=== PATIENT | female | born 1955 | race Asian ===

== ENCOUNTER 2021-12-04 08:09 | Day surgery (SDC) | payer OTHER ==
[2021-11-29 17:36] VITALS: BMI 26.0
[~2021-12-04 08:09] MED LIST: BUPIVACAINE HCL/PF 0.5% (5MG/ML) 10 ML VIAL IJ ONE; CEFAZOLIN 2 GM in DEXTROSE 5%-WATER - 100 ML IVPB ONE
[2021-12-04] MEDS ORDERED: ceFAZolin SODIUM 1 GM VIAL ONE (09:08)
[2021-12-04] MEDS ORDERED: BUPIVACAINE LIPOSOME/PF (EXPAREL) 266 MG/20 ML VIAL ONE (10:57)
[2021-12-04] MEDS ORDERED: BUPIVACAINE HCL/PF 0.5% (5MG/ML) 10 ML VIAL ONE ×2 (10:57→11:55)
[2021-12-04] MEDS ORDERED: MIDAZOLAM HCL 2 MG/2 ML SINGLE DOSE VIAL ONE ×3 (10:58→11:29)
[2021-12-04] MEDS ORDERED: CEFAZOLIN 2 GM in DEXTROSE 5%-WATER - 100 ML IVPB ONE (11:00)
[2021-12-04] MEDS ORDERED: fentaNYL CITRATE 250 MCG/5 ML VIAL ONE (11:28)
[2021-12-04] MEDS ORDERED: ACETAMINOPHEN INJECTION 100 ML IVPB ONE ×2 (12:36→16:48)
[2021-12-04] MEDS ORDERED: ceFAZolin SODIUM 1 GM VIAL IVPB ONE (12:38)
[2021-12-04] MEDS ORDERED: BUPIVACAINE HCL/PF 0.5% (5MG/ML) 10 ML VIAL IJ ONE ×2 (12:52)
[2021-12-04] MEDS ORDERED: KETOROLAC TROMETHAMINE 30 MG/1 ML VIAL ONE (13:31)
[2021-12-04] MEDS ORDERED: LIDOCAINE HCL/PF 2% SDV 5ML VIAL ONE (13:31)
[2021-12-04] MEDS ORDERED: PROPOFOL 20 ML ONE ×2 (13:34)
[2021-12-04] MEDS ORDERED: SUCCINYLCHOLINE CHLORIDE 200 MG/10 ML SYRINGE ONE (13:34)
[2021-12-04] MEDS ORDERED: ACETAMINOPHEN 325 MG TABLET (FP) PO PRN (16:30)
[2021-12-04] MEDS ORDERED: oxyCODONE HCL 5 MG TABLET PO PRN (16:30)
[2021-12-04] MEDS: ACETAMINOPHEN 1000 MG/100 ML BAG IVPB SCH ×2 (16:50→22:02)
[2021-12-04] MEDS ORDERED: ONDANSETRON 4 MG/2 ML VIAL IVPUSH PRN (17:24)
[2021-12-04] MEDS: LACTATED RINGERS SOLUTION 1,000 ML IV SCH (18:42)
[2021-12-04] MEDS: CEFAZOLIN 2 GM in DEXTROSE 5%-WATER - 100 ML IVPB SCH (19:59)
[2021-12-04] MEDS ORDERED: ROSUVASTATIN CA 5 MG TABLET PO SCH (22:00)
[2021-12-04] MEDS: FAMOTIDINE 20 MG TABLET PO SCH (22:01)
[2021-12-04] MEDS ORDERED: MELATONIN 5 MG TABLETS PO PRN (22:09)
[2021-12-05] MEDS: CEFAZOLIN 2 GM in DEXTROSE 5%-WATER - 100 ML IVPB SCH (01:39)
[2021-12-05] MEDS: ACETAMINOPHEN 1000 MG/100 ML BAG IVPB SCH ×2 (04:50→10:08)
[2021-12-05] MEDS: LACTATED RINGERS SOLUTION 1,000 ML IV SCH (04:52)
[2021-12-05 07:48] VITALS: BP 104/57; PULSE 79; TEMP 99
[2021-12-05] MEDS ORDERED: LISINOPRIL 20 MG TABLET PO SCH (10:00)
[2021-12-05] MEDS ORDERED: PATIENT'S OWN MEDICATION (NON-FORMULARY) (Amlodipine Besylate/Benazepril [Lotrel 10-20 Mg PO SCH (10:00)
[2021-12-05] MEDS ORDERED: amLODIPine BESYLATE 10 MG TABLET (FP) PO SCH (10:00)
[2021-12-05] MEDS: FAMOTIDINE 20 MG TABLET PO SCH (10:07)
== END 2021-12-05 11:21 | disposition home or self-care (01) ==
LOC: JASUSAT 08:09 → J8W 17:42 → JASUSAT 12-05 11:21
PROVIDERS: ATTEND Specialist
PROC: 0UT2FZZ Resection of Bilateral Ovaries, Via Natural or Artificial Opening With Percutaneous Endoscopic Assistance (ICD-10-PCS; 2021-12-04)
PROC: 0UT7FZZ Resection of Bilateral Fallopian Tubes, Via Natural or Artificial Opening With Percutaneous Endoscopic Assistance (ICD-10-PCS; 2021-12-04)
PROC: 8E0W8CZ Robotic Assisted Procedure of Trunk Region, Via Natural or Artificial Opening Endoscopic (ICD-10-PCS; 2021-12-04)
PROC: 0UT9FZZ Resection of Uterus, Via Natural or Artificial Opening With Percutaneous Endoscopic Assistance (ICD-10-PCS; principal; 2021-12-04 11:00)
DX: N92.0 Excessive and frequent menstruation with regular cycle (principal); D25.0 Submucous leiomyoma of uterus
CPT/HCPCS: 58552; S2900; 88307-TC; 94010; 94760; J0131